=== PATIENT | female | born 1990 | race Two or more races ===

== ENCOUNTER 2016-10-25 21:21 | Emergency (ER) | payer OTHER ==
[~2016-10-25] VITALS: Ht 165.1 cm; Wt 145.1 kg
[2016-10-25 22:00] VITALS: BP 130/88
== END 2016-10-26 02:22 | disposition home or self-care (01) ==
LOC: ER 21:30
DX: J02.9 Acute pharyngitis, unspecified (principal)

== ENCOUNTER 2017-12-22 17:52 | Emergency (ER) | payer OTHER ==
[~2017-12-22] VITALS: Ht 165.1 cm; Wt 147.0 kg
[2017-12-22 20:47] VITALS: BP 125/80
== END 2017-12-22 21:08 | disposition home or self-care (01) ==
LOC: ER 17:52
DX: B35.9 Dermatophytosis, unspecified (principal)

== ENCOUNTER 2019-02-25 12:45 | Observation (INO) | payer OTHER ==
[2019-02-25] MEDS ORDERED: LABE100T4 PO (13:45)
[2019-02-25] MEDS ORDERED: PREN-96 PO (13:45)
== END 2019-02-25 14:00 | disposition home or self-care (01) | DRG 566 ==
LOC: LDRP 12:45
PROVIDERS: ADMIT Obstetrics & Gynecology; ATTEND Obstetrics & Gynecology
DX: O26.893 Other specified pregnancy related conditions, third trimester (principal); R10.9 Unspecified abdominal pain; R42 Dizziness and giddiness; R51 Headache; O10.913 Unspecified pre-existing hypertension complicating pregnancy, third trimester; Z3A.32 32 weeks gestation of pregnancy
CPT/HCPCS: 59025; 81002; G0378

== ENCOUNTER 2019-06-28 10:02 | Emergency (ER) | payer OTHER ==
[~2019-06-28] VITALS: Ht 165.1 cm; Wt 136.1 kg
[~2019-06-28 10:02] MED LIST: LABE100T4 PO; PREN-96 PO
[2019-06-28 10:49] LABS: Basophils # (auto) 0.1 uL; Basophils % (auto) 0.6 % (0.0-2.0); Hematocrit 40.4 % (36.0-46.0); Mean Corpuscular Hgb Conc. 33.5 g/dL (32.0-36.0); Monocytes # (auto) 0.5 uL
[2019-06-28 10:50] LABS: Eosinophils # (auto) 0.1 uL; Eosinophils % (auto) 1.5 % (0.0-7.0); Hemoglobin 13.5 g/dL (12.2-16.2); Lymphocytes % (auto) 31.1 % (10.0-50.0); Mean Corpuscular Hemoglobin 27.1 pg (28.0-32.0); Mean Corpuscular Volume 80.7 fL (80.0-100.0); Monocytes % (auto) 5.2 % (0.0-12.0); Neutrophils % (auto) 61.6 % (37.0-80.0); Platelet Count (auto) 287 10^3/uL (140-450); White Blood Cell 9.7 10^3/uL (4.4-10.8)
[2019-06-28 11:13] LABS: Albumin 4.1 g/dL (3.4-5.0); Calcium 9.2 mg/dL (8.5-10.1); Potassium 4.2 mmol/L (3.5-5.1)
[2019-06-28 11:17] LABS: BUN/Creatinine Ratio 21.3; Bilirubin, Total 0.9 mg/dL (0.2-1.0); Total Protein 8.3 g/dL (6.4-8.2)
[2019-06-28 13:09] VITALS: BP 112/66
[2019-06-28 13:24] LABS: Urine Bacteria NONE SEEN /hpf (None Seen); Urine Blood 3+ /uL (Negative); Urine Specific Gravity 1.019 (1.001-1.035); Urine WBC 35 /hpf (0 - 5)
== END 2019-06-28 14:03 | disposition home or self-care (01) ==
LOC: ER 10:02
DX: O20.8 Other hemorrhage in early pregnancy (principal); O23.41 Unspecified infection of urinary tract in pregnancy, first trimester; Z3A.01 Less than 8 weeks gestation of pregnancy
CPT/HCPCS: 36415; 80053; 81001; 84702; 85025

== ENCOUNTER 2021-01-28 14:35 | Emergency (ER) | payer OTHER ==
[~2021-01-28] VITALS: Ht 165.1 cm; Wt 131.5 kg
[2021-01-28 16:13] LABS: Salicylate < 1.7 mg/dL (2.8-20.0)
[2021-01-28 16:19] LABS: Acetaminophen < 2.0 ug/mL (10-30)
[2021-01-28 16:57] LABS: Alcohol, Urine < 3.0 mg/dL (0-10); Amphetamine Screen, Urine NEGATIVE (NEGATIVE); Barbiturate Scree,Urine NEGATIVE (NEGATIVE); Benzodiazephine Screen, Urine NEGATIVE (NEGATIVE); Cannabinoid Screen, Urine NEGATIVE (NEGATIVE); Cocaine Screen, Urine NEGATIVE (NEGATIVE); Opiate Scree,Urine NEGATIVE (NEGATIVE); Phencyclidine Screen, Urine NEGATIVE (NEGATIVE)
[2021-01-28 19:34] VITALS: BP 146/80
== END 2021-01-28 20:22 | disposition home or self-care (01) ==
LOC: ER 14:35
DX: F32.9 Major depressive disorder, single episode, unspecified (principal)
CPT/HCPCS: 36415; 80307; 80329

== ENCOUNTER 2021-11-09 19:32 | Emergency (ER) | payer OTHER ==
[~2021-11-09] VITALS: Ht 167.6 cm; Wt 113.4 kg
[2021-11-09 19:48] VITALS: BP 114/86
[2021-11-09 20:22] LABS: Urine WBC None Seen /hpf (0 - 5)
[2021-11-09 20:29] LABS: Basophils # (auto) 0 10 ^3/uL (0-0.2); Basophils % (auto) 0.5 % (0.0-2.0); Eosinophils # (auto) 0.1 10 ^3/uL (0-0.8); Eosinophils % (auto) 1.3 % (0.0-7.0); Hematocrit 38.5 % (36.0-46.0); Hemoglobin 13.4 g/dL (12.2-16.2); Lymphocytes # (auto) 0.5 10 ^3/uL (0.4-5.4); Lymphocytes % (auto) 13.8 % (10.0-50.0); Mean Corpuscular Hemoglobin 28.4 pg (28.0-32.0); Mean Corpuscular Hgb Conc. 34.8 g/dL (32.0-36.0); Mean Corpuscular Volume 81.6 fL (80.0-100.0); Monocytes # (auto) 0.4 10 ^3/uL (0-1.3); Neutrophils # (auto) 2.9 10 ^3/uL (1.6-8.6); Neutrophils % (auto) 73.4 % (37.0-80.0); Nucleated Red Blood Cells % 0.1 %; Red Blood Cells 4.72 10^6/uL (4.0-5.20); Red Cell Distribution Width 13.5 % (11.8-14.3); White Blood Cell 3.9 10^3/uL (4.4-10.8)
[2021-11-09 20:30] LABS: Urine Bacteria NONE SEEN /hpf (None Seen); Urine Blood Negative /uL (Negative); Urine Specific Gravity 1.019 (1.001-1.035)
[2021-11-09 20:50] LABS: Albumin 3.6 g/dL (3.4-5.0); Calcium 9.3 mg/dL (8.5-10.1); Potassium 3.9 mmol/L (3.5-5.1)
[2021-11-09 20:55] LABS: Bilirubin, Total 0.4 mg/dL (0.2-1.0); Total Protein 7.5 g/dL (6.4-8.2)
== END 2021-11-09 22:27 | disposition left against medical advice (07) ==
LOC: EDBD 19:32 → ER 19:32
DX: R10.9 Unspecified abdominal pain (principal); R51.9 Headache, unspecified; R50.9 Fever, unspecified; M79.10 Myalgia, unspecified site; Z53.21 Procedure and treatment not carried out due to patient leaving prior to being seen by health care provider
CPT/HCPCS: 36415; 80053; 81001; 81025; 83690; 85025